=== PATIENT | male | born 1980 | race African-American/Black ===

== ENCOUNTER 2017-09-14 06:06 | Emergency (ER) | payer SELFPAY ==
[~2017-09-14] VITALS: Ht 175.3 cm; Wt 98.6 kg
[2017-09-14 06:43] VITALS: BP 149/108
== END 2017-09-14 06:51 | disposition home or self-care (01) ==
LOC: ED 06:32
DX: K08.89 Other specified disorders of teeth and supporting structures (principal)
CPT/HCPCS: 99283

== ENCOUNTER 2017-09-21 04:03 | Emergency (ER) | payer SELFPAY ==
[~2017-09-21] VITALS: Ht 177.8 cm; Wt 95.3 kg
[2017-09-21 04:04] VITALS: BP 136/100
[2017-09-21] MEDS ORDERED: LIDOCAINE-MPF 2% ,5ML SQ ONE (04:30)
[2017-09-21] MEDS ORDERED: LIDOCAINE-MPF 2% ,5ML ONE (04:32)
== END 2017-09-21 05:11 | disposition home or self-care (01) ==
LOC: ED 05:01
DX: L02.416 Cutaneous abscess of left lower limb (principal)
CPT/HCPCS: 10060; 99283

== ENCOUNTER 2017-12-06 16:26 | Emergency (ER) | payer SELFPAY ==
[~2017-12-06] VITALS: Ht 172.7 cm; Wt 94.0 kg
[2017-12-06 16:31] VITALS: BP 156/103
[2017-12-06] MEDS ORDERED: IBUPROFEN 200 MG TABLET ONE (16:52)
[2017-12-06] MEDS ORDERED: IBUPROFEN 200 MG TABLET PO ONE (17:00)
[2017-12-06] MEDS ORDERED: OXYcodone/APAP 5/325MG TABLET ONE (17:11)
[2017-12-06] MEDS ORDERED: OXYcodone/APAP 5/325MG TABLET PO ONE (17:30)
== END 2017-12-06 17:27 | disposition home or self-care (01) ==
LOC: ED 17:14
DX: S93.492A Sprain of other ligament of left ankle, initial encounter (principal); F17.200 Nicotine dependence, unspecified, uncomplicated; W01.0XXA Fall on same level from slipping, tripping and stumbling without subsequent striking against object, initial encounter; Y93.89 Activity, other specified; Y99.8 Other external cause status; Y92.89 Other specified places as the place of occurrence of the external cause
CPT/HCPCS: 99284